=== PATIENT | male | born 2000 | race Caucasian/White ===

== ENCOUNTER 2020-06-11 15:36 | Emergency (ER) | payer OTHER ==
[~2020-06-11] VITALS: Ht 167.6 cm; Wt 109.1 kg
[2020-06-11] MEDS ORDERED: METF-960 PO (16:27)
[2020-06-11] MEDS ORDERED: INSREG SQ (16:27)
[2020-06-11] MEDS ORDERED: INSULIN REGULAR, HUMAN 100 UNITS/ML SQ ONE (16:30)
[2020-06-11] MEDS ORDERED: MetFORMIN HCL 500 MG ER TABLET PO ONE (16:30)
[2020-06-11] MEDS ORDERED: HYDROCODONE/ACETAMINOPHEN 5-325 MG TABLET PO ONE (16:30)
[2020-06-11] MEDS ORDERED: IBUPROFEN 600 MG TABLET PO ONE (16:30)
[2020-06-11 17:30] VITALS: BP 126/67
[2020-06-11 19:03] LABS: GLUCOSE,POINT OF CARE 355 MG/DL (70-110)
== END 2020-06-11 17:53 | disposition home or self-care (01) ==
LOC: EMS 15:36
DX: S33.5XXA Sprain of ligaments of lumbar spine, initial encounter (principal); E11.65 Type 2 diabetes mellitus with hyperglycemia; F17.210 Nicotine dependence, cigarettes, uncomplicated; Z88.0 Allergy status to penicillin; Z79.4 Long term (current) use of insulin; V49.9XXA Car occupant (driver) (passenger) injured in unspecified traffic accident, initial encounter; Y93.89 Activity, other specified; Y92.89 Other specified places as the place of occurrence of the external cause; Y99.8 Other external cause status
CPT/HCPCS: 72040; 72070; 72100; 82962; 96372; 99284; J1815